=== PATIENT | female | born 1990 | race Caucasian/White ===

== ENCOUNTER 2018-10-30 08:37 | Day surgery (SDC) | payer OTHER ==
[~2018-10-30] VITALS: Ht 177.8 cm; Wt 133.9 kg
[2018-10-30 09:44] VITALS: BP 147/107
== END 2018-10-30 17:45 | disposition home or self-care (01) ==
LOC: OUT 08:37 → EDSTATUS 11:00 → OUT 17:45
PROVIDERS: ATTEND Orthopaedic Surgery Orthopaedic Surgery of the Spine
DX: M51.17 Intervertebral disc disorders with radiculopathy, lumbosacral region (principal); M51.16 Intervertebral disc disorders with radiculopathy, lumbar region; M48.061 Spinal stenosis, lumbar region without neurogenic claudication; I10 Essential (primary) hypertension; E11.9 Type 2 diabetes mellitus without complications; E78.00 Pure hypercholesterolemia, unspecified; Z79.84 Long term (current) use of oral hypoglycemic drugs; Z79.899 Other long term (current) drug therapy; Z82.49 Family history of ischemic heart disease and other diseases of the circulatory system
CPT/HCPCS: 63030; 63035; 72100; 81025; 82962; J0171; J0690; J1100; J2001; J2250; J2405; J2704; J2765; J3010; J3370; J3490; J7120; J3260

== ENCOUNTER 2019-03-26 08:03 | Inpatient (IN) | payer OTHER ==
[~2019-03-26] VITALS: Ht 177.8 cm; Wt 137.0 kg
[~2019-03-26 08:03] MED LIST: ATOR20TA37 PO; BUSP10TA PO; EMPA25TA PO; ERGO500017 PO; LINA5TAB PO; METF850T10 PO; METO100T5 PO; SERT100T32 PO; SITA25TA PO
[2019-03-26] MEDS ORDERED: MIDAZOLAM 1 MG/ML, 2ML ONE (08:46)
[2019-03-26] MEDS ORDERED: FENTANYL PF 250 MCG/5ML ONE ×2 (08:46→10:37)
[2019-03-26] MEDS ORDERED: CEFAZOLIN 1,000 MG ONE ×2 (08:48→09:57)
[2019-03-26] MEDS ORDERED: DEXAMETHASONE 4 MG/ML, 1ML ONE (08:48)
[2019-03-26] MEDS ORDERED: PROPOFOL 10 MG/ML, 20ML ONE (08:48)
[2019-03-26] MEDS ORDERED: ROCURONIUM 10MG/ML,5ML ONE (08:48)
[2019-03-26] MEDS ORDERED: GLYCOPYRROLATE 0.2MG/1ML, 5ML ONE (08:48)
[2019-03-26] MEDS ORDERED: NEOSTIGMINE 1 MG/ML, 10ML ONE (08:48)
[2019-03-26] MEDS ORDERED: ONDANSETRON 2MG/ML, 2ML ONE (08:48)
[2019-03-26] MEDS ORDERED: LACTATED RINGERS 1,000 ML IV SCH (08:58)
[2019-03-26] MEDS ORDERED: GABAPENTIN 300 MG CAPSULE PO ONE (09:00)
[2019-03-26] MEDS ORDERED: ACETAMINOPHEN 500 MG TABLET PO ONE (09:00)
[2019-03-26] MEDS ORDERED: SCOPOLAMINE PATCH, 1.5MG PATCH.TD72 TD ONE (09:00)
[2019-03-26] MEDS ORDERED: LIDOCAINE-MPF 1%, 2ML INFIL ONE (09:00)
[2019-03-26] MEDS ORDERED: HALOPERIDOL 5 MG/ML IV PRN (09:30)
[2019-03-26] MEDS ORDERED: MORPHINE SULFATE 4 MG/ML, 1ML IVPush PRN (09:30)
[2019-03-26] MEDS ORDERED: DIAZEPAM 5 MG/ML, 2ML IVPush PRN (09:30)
[2019-03-26] MEDS ORDERED: PROMETHAZINE 25 MG/ML, 1ML IV PRN (09:30)
[2019-03-26] MEDS ORDERED: OXYcodone 5 MG/5 ML ORAL.SOL UDC PO PRN (09:30)
[2019-03-26] MEDS ORDERED: HYDROmorphone 2 MG/ML, 1ML IVPush PRN (09:30)
[2019-03-26] MEDS ORDERED: LABETALOL 5MG/ML, 20ML IV PRN (09:30)
[2019-03-26] MEDS ORDERED: hydrALAzine 20 MG/ML, 1ML IV PRN (09:30)
[2019-03-26] MEDS ORDERED: MEPERIDINE/PF 25MG/ML,1ML IVPush PRN (09:30)
[2019-03-26 10:02] LABS: HCG UR SG 1.024 (1.003-1.030)
[2019-03-26] MEDS ORDERED: hydrALAzine 20 MG/ML, 1ML ONE (10:45)
[2019-03-26] MEDS ORDERED: THROMBIN 5,000 UNIT VIAL TP ONE ×2 (11:05→14:51)
[2019-03-26] MEDS ORDERED: VANCOMYCIN 1,000 MG ONE ×2 (11:48→14:53)
[2019-03-26] MEDS ORDERED: FENTANYL PF 100 MCG/2ML ONE ×2 (12:03→13:46)
[2019-03-26] MEDS ORDERED: METHOCARBAMOL 1,000 MG in DEXTROSE 5% 100 ML IV ONE (12:30)
[2019-03-26] MEDS ORDERED: OXYcodone 5 MG/5 ML ORAL.SOL UDC ONE (13:47)
[2019-03-26] MEDS: FENTANYL PF 100 MCG/2ML IV PRN ×2 (13:50→13:55)
[2019-03-26] MEDS ORDERED: BUPIVACAINE/PF 0.25% ONE (14:51)
[2019-03-26] MEDS ORDERED: EPINEPHRINE 1 MG/ML, 1ML ONE (14:51)
[2019-03-26] MEDS ORDERED: LIDOCAINE/PF 0.5% ,50ML ONE (14:51)
[2019-03-26] MEDS ORDERED: PHARMACY MAY ADJ FOR RENAL FX MC PRN (15:00)
[2019-03-26] MEDS ORDERED: BISACODYL 10 MG SUPP PR PRN (15:30)
[2019-03-26] MEDS ORDERED: PROMETHAZINE 25 MG/ML, 1ML IM PRN (15:30)
[2019-03-26] MEDS ORDERED: DIPHENHYDRAMINE 50 MG/ML, 1ML IM PRN (15:30)
[2019-03-26] MEDS ORDERED: HYDROcodone/APAP 10/325 MG TABLET PO PRN (15:30)
[2019-03-26] MEDS ORDERED: DIPHENHYDRAMINE 25 MG CAPSULE PO PRN (15:30)
[2019-03-26] MEDS ORDERED: DIPHENHYDRAMINE 50 MG/ML, 1ML IVPush PRN (15:30)
[2019-03-26] MEDS ORDERED: morphine SULFATE 10 MG/ML, 1ML IV PRN (15:30)
[2019-03-26] MEDS ORDERED: ONDANSETRON 2MG/ML, 2ML IV PRN (15:30)
[2019-03-26] MEDS ORDERED: MAGNESIUM HYDROXIDE 8%, 30ML UDC PO PRN (15:30)
[2019-03-26] MEDS ORDERED: LORazepam 1MG TABLET PO PRN (17:00)
[2019-03-26] MEDS: CEFAZOLIN PMX 2GM/50ML 50 ML IVPB SCH (18:53)
[2019-03-26] MEDS: NS + 20MEQ KCL 1,000 ML IV SCH (18:53)
[2019-03-26 18:55] VITALS: BP 113/66
[2019-03-26] MEDS: SENNA/DOCUSATE TABLET PO SCH (20:48)
[2019-03-26] MEDS: METHOCARBAMOL 750 MG in DEXTROSE 5% 100 ML IV SCH (20:48)
[2019-03-26] MEDS ORDERED: ZOLPIDEM 5MG TABLET PO PRN (21:00)
[2019-03-26 23:00] VITALS: BP 130/62
[2019-03-27 02:00] VITALS: BP 122/61
[2019-03-27] MEDS: CEFAZOLIN PMX 2GM/50ML 50 ML IVPB SCH (02:01)
[2019-03-27] MEDS: HYDROcodone/APAP 5/325 TABLET PO PRN ×4 (02:08→13:36)
[2019-03-27] MEDS: METHOCARBAMOL 750 MG in DEXTROSE 5% 100 ML IV SCH ×3 (05:07→21:52)
[2019-03-27 07:21] VITALS: BP 120/61
[2019-03-27] MEDS: NS + 20MEQ KCL 1,000 ML IV SCH ×2 (07:30→17:19)
[2019-03-27] MEDS: SENNA/DOCUSATE TABLET PO SCH ×2 (08:07→21:02)
[2019-03-27 13:31] VITALS: BP 117/64
[2019-03-27] MEDS ORDERED: DEXAMETHASONE 4 MG/ML, 1ML IVPush SCH (14:30)
[2019-03-27] MEDS: KETOROLAC 30 MG/1 ML IVPush SCH ×2 (14:44→21:02)
[2019-03-27 17:39] VITALS: BP 104/63
[2019-03-27 20:28] VITALS: BP 118/57
[2019-03-27] MEDS: DEXAMETHASONE 4 MG/ML, 1ML IVPush SCH (21:02)
[2019-03-28 02:26] VITALS: BP 119/76
[2019-03-28] MEDS: DEXAMETHASONE 4 MG/ML, 1ML IVPush SCH ×2 (03:16→08:22)
[2019-03-28] MEDS: KETOROLAC 30 MG/1 ML IVPush SCH ×2 (03:16→08:22)
[2019-03-28] MEDS: NS + 20MEQ KCL 1,000 ML IV SCH ×2 (03:30→13:30)
[2019-03-28] MEDS: METHOCARBAMOL 750 MG in DEXTROSE 5% 100 ML IV SCH ×2 (05:42→13:00)
[2019-03-28 06:05] LABS: BASOPHILS # (AUTO) 0.02 x10^3/uL (0-0.1); BASOPHILS % (AUTO) 1 % (0-1); EOSINOPHILS # (AUTO) 0.02 x10^3/uL (0-0.4); EOSINOPHILS % (AUTO) 1 % (1-7); LYMPHOCYTES # (AUTO) 0.53 x10^3/uL (1-3.4); LYMPHOCYTES % (AUTO) 14 % (22-44); MD NO; MEAN CORPUSCULAR HEMOGLOBIN 29.2 pg (27.0-34.8); MEAN CORPUSCULAR HGB CONC 32.9 g/dL (32.4-35.8); MEAN CORPUSCULAR VOLUME 88.8 fL (80-100); MEAN PLATELET VOLUME 8.3 fL (7.4-10.4); MONOCYTES # (AUTO) 0.33 x10^3/uL (0.2-0.8); MONOCYTES % (AUTO) 9 % (2-9); NEUTROPHILS # (AUTO) 2.81 x10^3/uL (1.8-6.8); NEUTROPHILS % (AUTO) 76 % (42-75); PLATELET COUNT 150 x10^3/uL (130-400); RED BLOOD COUNT 3.86 x10^6/uL (3.82-5.3); RED CELL DISTRIBUTION WIDTH 14.1 % (9.6-15.2)
[2019-03-28 07:13] VITALS: BP 129/73
[2019-03-28] MEDS: SENNA/DOCUSATE TABLET PO SCH (08:22)
[2019-03-28 13:10] VITALS: BP 116/73
[2019-03-28] MEDS ORDERED: METH750T87 PO (13:32)
[2019-03-28] MEDS ORDERED: HYDR-3240 PO (13:32)
[2019-03-28] MEDS ORDERED: IBUP-1222 PO (13:33)
[2019-03-28] MEDS ORDERED: CEPH-368 PO (13:34)
[2019-03-28] MEDS ORDERED: METHOCARBAMOL 750 MG TABLET PO SCH (19:00)
== END 2019-03-28 14:01 | disposition home or self-care (01) | DRG 516 ==
LOC: OUT 08:03 → 3WST 14:45 → OUT 15:42 → 4NE 03-27 17:19 → DCLOUNGE 03-28 13:45
PROVIDERS: ADMIT Orthopaedic Surgery Orthopaedic Surgery of the Spine; ATTEND Orthopaedic Surgery Orthopaedic Surgery of the Spine
PROC: 01NR0ZZ Release Sacral Nerve, Open Approach (ICD-10-PCS; 2019-03-26)
PROC: 01NB0ZZ Release Lumbar Nerve, Open Approach (ICD-10-PCS; principal; 2019-03-26 10:00)
DX: M48.061 Spinal stenosis, lumbar region without neurogenic claudication (principal); Z68.41 Body mass index [BMI] 40.0-44.9, adult; E78.5 Hyperlipidemia, unspecified; I10 Essential (primary) hypertension; E11.9 Type 2 diabetes mellitus without complications; E78.00 Pure hypercholesterolemia, unspecified; E66.01 Morbid (severe) obesity due to excess calories; Z82.49 Family history of ischemic heart disease and other diseases of the circulatory system
CPT/HCPCS: 36415; 72100; 81025; 82962; 85025; 86850; 86900; G0378; J0171; J0690; J1100; J1885; J2001; J2250; J2405; J2704; J2710; J3010; J3370; J3480; J3490; J0360; J2800; J7120